=== PATIENT | male | born 1965 | race Caucasian/White ===

== ENCOUNTER 2021-07-02 12:04 | Emergency (ER) | payer OTHER, SELFPAY ==
[2021-07-02 12:19] VITALS: BP 181/112; PULSE 66; RESP 18; TEMP 36.7; O2SAT 97; BMI 21.7
[2021-07-02] MEDS: LIDO 1%/SOD BICARB 8.4% (10ML) 10 ML SYRINGE INJ (13:31)
[2021-07-02] MEDS: BACITRACIN OINT 0.9 GM PCKT 1 APPLIC TOP (14:01)
--- NOTE | 2021-07-02 14:03 | ED.WOUNDLAC ---
HPI - Wound/Laceration <NEIL Garcia - Last Filed: 07/02/21 14:11> General Chief Complaint: Wound/Laceration Stated Complaint: Lt Thumb Laceration Time Seen by Provider: 07/02/21 12:27 Source: patient Mode of arrival: Ambulatory History of Present Illness HPI narrative: 56-year-old male presents to the emergency department complaining of left thumb laceration from a carpet blade that he had just changed he states he has not cut any carpet with it but it cut the base of his left thumb. Patient is right-handed, denies any range of motion abnormalities, bleeding was controlled with pressure, denies any sensation changes distally. His laceration approximately 1 cm long, it is not contaminated, patient washed it with soap and water and then put antibiotic ointment on it. This is an L and I claim. Related Data Allergies Allergy/AdvReac Type Severity Reaction Status Date / Time No Known Drug Allergies Allergy Verified 07/02/21 12:19 Review of Systems <NEIL Garcia - Last Filed: 07/02/21 14:11> Review of Systems Narrative: General: denies fever, chills Head/Neck: denies headache, neck pain Eyes: denies visual changes, eye pain Cardio: denies chest pain, palpitations Respiratory: denies shortness of breath, cough GI: denies abdominal pain, nausea, vomiting, or diarrhea : denies dysuria, hematuria MSK: denies joint pain, muscle weakness Skin: denies rash, itching, left thumb laceration Neuro: denies numbness, tingling Patient History <NEIL Garcia - Last Filed: 07/02/21 14:11> Social History Smoking Status: Former smoker Smoking Status: Former smoker alcohol intake frequency: 3 or more drinks per day Substance Use Type: marijuana Exam <NEIL Garcia - Last Filed: 07/02/21 14:11> Narrative Exam Narrative: Independently reviewed vitals signs and nursing notes. General: Awake, alert, nontoxic, no cardiorespiratory distress Head/Neck: Atraumatic, neck full range of motion Eyes: EOMI, conjunctiva normal Nose: nares patent, no rhinorrhea Mouth/Throat: moist mucus membranes, posterior pharynx normal, no oral lesions Cardio: Regular rate and rhythm, no peripheral edema Respiratory: respirations unlabored without wheezing, stridor, or rales. No retractions. GI: Abdomen soft, nontender MSK: Moves all extremities, neurovascularly intact Skin: Normal capillary refill, no rash, approximate 1 cm linear laceration to the dorsum of his left thumb over the MCP joint. Bleeding controlled, no suspicion for tendon injury, wound explored, irrigated with water, flexion-extension intact without any deficits, cap refill less than 2 seconds Neuro: Normal speech and cognition, normal gait Initial Vital Signs Initial Vital Signs: Vital Signs Temperature 98.0 F 07/02/21 12:19 Pulse Rate 66 07/02/21 12:19 Respiratory Rate 18 07/02/21 12:19 Blood Pressure 181/112 H 07/02/21 12:19 Pulse Oximetry 97 07/02/21 12:19 <Holli Spears DO - Last Filed: 07/03/21 09:20> Initial Vital Signs Initial Vital Signs: Vital Signs Temperature 98.0 F 07/02/21 12:19 Pulse Rate 66 07/02/21 12:19 Respiratory Rate 18 07/02/21 12:19 Blood Pressure 181/112 H 07/02/21 12:19 Pulse Oximetry 97 07/02/21 12:19 Procedures <NEIL Garcia - Last Filed: 07/02/21 14:11> Laceration Repair Laceration 1: Site: hand (Dorsum of left thumb over MCP joint) Side (If applicable): left Size (cm): 1 Description: linear Depth: simple, single layer Local Anesthetic: lidocaine 1% and with bicarb Amount of anesthesia used (mL): 3 Pre-repair: wound explored, irrigated extensively and deep structures intact Skin layer closed with: nylon Size (cm): 5-0 Number of sutures: 3 Technique: simple, interrupted Course <NEIL Garcia - Last Filed: 07/02/21 14:11> Orders Ordered: Discontinued Medications Bacitracin (Bacitracin Oint 0.9 Gm Pckt) 1 applic TOP NOW ONE Stop: 07/02/21 13:50 Last Admin: 07/02/21 14:01 Dose: 1 applic Documented by: RLAZANI Lidocaine/Sodium Bicarbonate (Lido 1%/Sod Bicarb 8.4% (10ml) 10 Ml Syringe) 10 ml INJ NOW ONE Stop: 07/02/21 12:29 Last Admin: 07/02/21 13:31 Dose: 10 ml Documented by: BOGDAN Vital Signs Vital signs: Vital Signs - 8 hr 07/02/21 12:19 Temperature 98.0 F Pulse Rate 66 Respiratory Rate 18 Blood Pressure 181/112 H Pulse Oximetry 97 <Holli Spears DO - Last Filed: 07/03/21 09:20> Orders Ordered: Discontinued Medications Bacitracin (Bacitracin Oint 0.9 Gm Pckt) 1 applic TOP NOW ONE Stop: 07/02/21 13:50 Last Admin: 07/02/21 14:01 Dose: 1 applic Documented by: VICENTA Lidocaine/Sodium Bicarbonate (Lido 1%/Sod Bicarb 8.4% (10ml) 10 Ml Syringe) 10 ml INJ NOW ONE Stop: 07/02/21 12:29 Last Admin: 07/02/21 13:31 Dose: 10 ml Documented by: BOGDAN Vital Signs Vital signs: Vital Signs - 8 hr 07/02/21 12:19 Temperature 98.0 F Pulse Rate 66 Respiratory Rate 18 Blood Pressure 181/112 H Pulse Oximetry 97 MDM - Wound/Laceration <NEIL Garcia - Last Filed: 07/02/21 14:11> [facility] Narrative Medical decision making narrative: 56-year-old male presents to the emergency department with a left thumb laceration from a carpet knife while he was at work today. Wound was cleansed with soap and water, patient's last tetanus was 2 years ago. Patient had a 1 cm linear laceration to the dorsum of his left thumb over the MCP joint, deep structures appeared intact, wound was irrigated with water, cleansed with soap water prior to arrival, no CSM changes, cap refill less than 2 seconds, no nail injury. Wound closure with 5 0 Ethilon sutures, patient received 3, instructed to have sutures removed in 10-14 days, keep it covered with a Band-Aid, he was fitted in a thumb spica splint for protection. Patient was given a referral to establish primary care with a primary care provider. States that his blood pressure was elevated today and he would like to establish primary care was somebody to help get this under control. Patient is appropriate and amenable to discharge home. Vital signs are stable on repeat examination is unremarkable. Patient has been informed of results. Patient has been given strict return to ER precautions for any new or worsening symptoms. Patient understands to follow up closely with outpatient providers as instructed. Patient understands plan and agrees to discharge home. All questions and concerns answered at this time. Discharge Plan Departure Patient Disposition: Home Clinical Impression: Work related injury Laceration of finger Qualifiers: Encounter type: initial encounter Finger: thumb Damage to nail status: without damage Foreign body presence: without foreign body Laterality: left Qualified Code(s): S61.012A - Laceration without foreign body of left thumb without damage to nail, initial encounter Instructions: DI for Laceration Repair Activity Restrictions/Additional Instructions: *You have been diagnosed with a laceration to your left thumb, please he this clean, wash it with soap and water twice a day gently, apply bacitracin or antibiotic ointment and cover with Band-Aid. Please keep it covered at all times while at work and work gloves. If you develop any redness or swelling around the site, please return for antibiotics and use antibiotic ointment daily if it looks infected. Otherwise a plain Band-Aid is fine if there is no signs of infection. Please have your sutures removed in 10-14 days, try to keep the bending at the base of the thumb to a minimum. Ibuprofen or Tylenol is fine for pain, please establish care with a primary care provider by calling [phone] and they will help you with your blood pressure. I hope it heals nicely. *What to do: *Please continue to take your regular medications as directed. [ ] New medication prescriptions sent to your pharmacy: [ ] [ ] New medication written as a paper prescription [ ] No new medications given *Please follow up with your primary care provider in 2-3 days, call for an appointment. Let them know you were seen in the Emergency Department and that we ask that you be seen in follow up. We will electronically transmit a record of today's note if your PCP is in our system *If you do not have a primary care provider please contact the [facility] Resource line at [phone]. They will ask some questions about your medical history and help get you set up with a doctor in the community. *Return to Emergency Department if you should have any new, worsening or concerning symptoms, such as [fever greater than 101F, chills, worsening pain, persistent vomiting or other bothersome symptoms] <Holli Spears, - Last Filed: 07/03/21 09:20> Cosign ED Attending Anahi Attestation: I was immediately available in the department for consultation. Documentation has been reviewed.
[2021-07-02 14:06] VITALS: BP 160/90; PULSE 90; RESP 18; O2SAT 100
--- NOTE | 2021-07-02 14:08 | PC.NURSE ---
left thumb lac repaired by provider. dsg applied bacitracin and bandaid and left thumb spica splint in place. pt tolerated procedure well.
== END 2021-07-02 14:08 | disposition home or self-care (01) ==
PROVIDERS: Emergency Provider Nurse Practitioner Critical Care Medicine
DX: S61.012A Laceration without foreign body of left thumb without damage to nail, initial encounter (principal); Z87.891 Personal history of nicotine dependence; W26.0XXA Contact with knife, initial encounter; Y99.0 Civilian activity done for income or pay
CPT/HCPCS: 12001; 99282; 99283